=== PATIENT | female | born 1970 | race Caucasian/White ===

== ENCOUNTER 2017-02-18 08:33 | Emergency (ER) | payer OTHER ==
[~2017-02-18] VITALS: Ht 185.4 cm; Wt 117.0 kg
[~2017-02-18 08:33] MED LIST: CYCL1TAB29 PO; DICL75TA PO; LISI10TA3 PO
[2017-02-18 08:36] VITALS: BP 176/90; PULSE 106; RESP 24; TEMP 98.6; O2SAT 95
[2017-02-18] MEDS ORDERED: RESP: ALBUTEROL 2.5 MG/IPRATROPIUM 0.5 MG NEB (SCH) INH ONE (09:00)
[2017-02-18] MEDS ORDERED: predniSONE 20 MG TAB PO ONE (09:00)
[2017-02-18] MEDS ORDERED: PRED-503 PO (09:06)
[2017-02-18] MEDS ORDERED: BENZ100 PO (09:06)
[2017-02-18] MEDS ORDERED: AZIT500T2 PO (09:06)
[2017-02-18] MEDS ORDERED: ALBUAER3 INH (09:06)
--- NOTE | 2017-02-18 09:07 | PD ---
HPI Chief Complaint: Cold / Flu Symptoms Time Seen by Provider: 08:59 Travel History International Travel<30 days: No Contact w/Intl Traveler<30days: No Traveled to known affect area: No History of Present Illness HPI 46-year-old female presents to the emergency Department with complaint of cough times one week. Reports wheezing. Denies shortness of breath, chest tightness , chest pain. Denies hemoptysis. Reports loss of yellowish phlegm. Denies ear pain, sore throat, fever, chills, nausea, vomiting. Denies history of COPD , bronchitis, asthma. Has tried over the counter medications with no relief of symptoms. History of hypertension. No known allergies. No other modifying factors or associated signs and symptoms. PFSH Past Medical History Cardiovascular Problems: Yes (HTN) Hypertension: Yes Ovarian Cysts: Yes Past Surgical History Cholecystectomy: Yes Gynecologic Surgery: Yes (tumor removed) Social History Alcohol Use: No Tobacco Use: No Substance Use: No Allergies-Medications (Allergen,Severity, Reaction): Coded Allergies: No Known Allergies (Unverified , 02/18/17) Reported Meds & Prescriptions Reported Meds & Active Scripts Active Azithromycin 500 Mg Tab 500 Mg PO DAILY Tessalon Perles (Benzonatate) 100 Mg Cap 100 Mg PO TID PRN Deltasone (Prednisone) 20 Mg Tab 40 Mg PO DAILY 4 Days start 02/19/2017 Proair Hfa 8.5 GM Inh (Albuterol Sulfate) 90 Mcg/Act Aer 2 Puff INH Q4-6H PRN 108 mcg/actuation Lisinopril 10 Mg Tab 10 Mg PO DAILY Flexeril (Cyclobenzaprine HCl) 10 Mg Tab 10 Mg PO TID Diclofenac Sodium DR (Diclofenac Sodium) 75 Mg Tabdr 75 Mg PO BID Review of Systems Except as stated in HPI: all other systems reviewed are Neg Physical Exam Narrative GENERAL: Well-nourished, well-developed female patient, in no acute distress; afebrile, nontoxic-appearing SKIN: Warm and dry. HEAD: Atraumatic. Normocephalic. EYES: Pupils equal and round. No scleral icterus. No injection or drainage. ENT: Mucosa pink and moist. No erythema or exudates. No uvular edema. No uvular , palatal, or tonsillar deviation. Airway patent. EARS: Bilateral pinnae and external canals appear within normal limits. Bilateral tympanic membranes without erythema, dullness or perforation. NECK: Trachea midline. No lymphadenopathy. CARDIOVASCULAR: Regular rate and rhythm. No murmur appreciated. RESPIRATORY: No accessory muscle use. Lungs with diffuse Wheezing throughout to auscultation. Breath sounds equal bilaterally. No retractions or tachypnea. No Audible wheezing noted. Persistent dry cough. GASTROINTESTINAL: Rounded. MUSCULOSKELETAL: No obvious deformities. No clubbing. No cyanosis. No edema. NEUROLOGICAL: Awake and alert. Oriented 3. No obvious cranial nerve deficits. Motor grossly within normal limits. Normal speech. Moves all extremities. 5/5 strength to all extremities. PSYCHIATRIC: Appropriate mood and affect; insight and judgment normal. Data Data Last Documented VS Vital Signs Date Time Temp Pulse Resp B/P Pulse Ox O2 Delivery O2 Flow Rate FiO2 02/18/17 08:41 02/18/17 08:36 98.6 106 24 95 Room Air Orders Chest, Single Ap (02/18/17 08:51) Prednisone (Deltasone) (02/18/17 09:00) Albuterol-Ipratropium Neb (Duoneb Neb) (02/18/17 09:00) MDM Medical Decision Making Medical Screen Exam Complete: Yes Emergency Medical Condition: Yes Medical Record Reviewed: Yes Differential Diagnosis Bronchitis, pneumonia, Narrative Course 46-year-old female physical exam and history of present illness consistent with bronchitis. Persistent dry cough during physical exam. Patient is in no acute distress and without retractions or tachypnea. Lungs with diffuse wheezing throughout. Oxygen saturation 95% on room air. Denies chest pain, chest tightness, shortness of breath. DuoNeb 1 and Deltasone ordered. Chest x-ray ordered. 0928: Chest x-ray with no acute disease. Patient reports improvement in symptoms. Lungs are with mild wheezing in bilateral bases; after the patient another breathing treatment she declined at this time. Cough exacerbation has subsided. Heart rate recheck is approximately 90 bpm. Pro Air inhaler, Deltasone, Tessalon Perles, azithromycin prescribed for home. Work release provided. Patient verbalizes understanding and agreement with treatment plan. Patient is medically cleared and stable for discharge. Discussed reasons to return to the emergency department. Instructed patient to follow up with primary care provider. Patient agrees with treatment plan. The patients vital signs are stable and the patient is stable for outpatient follow-up and treatment. Patient discharged home, stable and in no acute distress. Diagnosis Primary Impression: Bronchitis Referrals: Primary Care Physician Patient Instructions: Acute Bronchitis (ED), General Instructions Departure Forms: Tests/Procedures, Work Release Enter return to work date: Feb 20, 2017 Additional Instructions: Use Albuterol inhaler as prescribed Take oral steroids as prescribed and complete full course Use Tessalon Perles as prescribed to decrease coughing spasms [id number] decongestants or antihistamines as directed and as needed for symptom management Your cough can last 4-6 weeks Drink plenty of fluids to prevent dehydration Use hot air humidifier to decrease cough exacerbation Turn off ceiling fans and sleep with head of bed elevated Avoid triggers such as second hand smoke, dust, known allergens Follow-up with your primary care provider Return to the emergency department immediately with worsening of symptoms Med/Other Pt SpecificInfo: Prescription(s) given Scripts Azithromycin 500 Mg [id number] Mg PO DAILY #5 TAB Ref 0 Prov:Suzanna Browning 02/18/17 Benzonatate (Tessalon Perles)100 Mg [id number] Mg PO TID PRN (COUGH) #20 CAP Ref 0 Prov:Suzanna Browning 02/18/17 Prednisone (Deltasone)20 Mg Tab40 Mg PO DAILY 4 Days Ref 0 start 02/19/2017 Prov:Suzanna Browning 02/18/17 Albuterol 8.5 GM Inh (Proair Hfa 8.5 GM Inh)90 Mcg/Act Aer2 Puff INH Q4-6H PRN ( SOB/WHEEZING) #1 INHALER Ref 0 108 mcg/actuation Prov:Suzanna Browning 02/18/17 Disposition: 01 DISCHARGE HOME Condition: Stable Suzanna Browning Feb 18, 2017 09:06
--- NOTE | 2017-02-18 09:18 | RADRPT ---
EXAM DATE/TIME: 02/18/2017 09:05 [facility] COMPARISON: No previous studies available for comparison. INDICATIONS : Patient states cough for 1 week. MEDICAL HISTORY : Hypertension. SURGICAL HISTORY : None. ENCOUNTER: Initial ACUITY: 1 week PAIN SCORE: 3/10 LOCATION: Bilateral chest FINDINGS: A single view of the chest demonstrates the lungs to be symmetrically aerated without evidence of mas s, infiltrate or effusion. The cardiomediastinal contours are unremarkable. Osseous structures are intact. CONCLUSION: No acute disease. Gabriele Coffey MD FACR on February 18, 2017 at 9:16 Board Certified Radiologist. This report was verified electronically.
== END 2017-02-18 09:57 | disposition home or self-care (01) ==
LOC: NETRI 08:33
DX: J40 Bronchitis, not specified as acute or chronic (principal)
CPT/HCPCS: 71010; 94664; 99283; J7512